=== PATIENT | male | born 1970 | race Caucasian/White ===

== ENCOUNTER → 2019-06-12 | Outpatient (CLI) | payer BC ==
[~2019-06-12] MED LIST: CEPHALEXIN500 M1 PO; DOXYCYCLINE100 M3 PO; IBU-8800 MG PO; KEFLEX500 MG PO; KENALOG 0.1%80 GM T; MOTRIN800 MG PO; TRAMADOL HCL50 MG PO; VICODIN 5/500 505 MG PO
[2019-06-12 08:45] LABS: HEMATOCRIT 46.1 % (42.0-52.0); HEMOGLOBIN 15.6 g/dl (14.0-18.0); MEAN CELL VOLUME 96.8 fl (80.0-94.0); MEAN CORPUSCULAR HGB 32.8 pg (27.0-31.0); MEAN CORPUSCULAR HGB CONC 33.8 g/dl (33.0-37.0); MEAN PLATELET VOLUME 9.4 fl (9.6-12.3); RED BLOOD COUNT 4.76 10*6/uL (4.50-5.90); RED CELL DISTRI WIDTH 11.4 % (0-14.5); WHITE BLOOD COUNT 5.1 10*3/uL (4.8-10.8)
[2019-06-12 09:16] LABS: BUN 13 mg/dl (7-24); CHLORIDE 107 mmol/L (98-107); CHOLESTEROL 192 mg/dL (<200); CREATININE 1.03 mg/dL (0.70-1.30); POTASSIUM 3.9 mmol/L (3.5-5.1); SGOT/AST 26 IU/L (3-35); SGPT/ALT 43 U/L (12-78); SODIUM 140 mmol/L (136-145); TRIGLYCERIDES 83 mg/dl (<150); VLDL CHOLESTEROL 17 mg/dL (6-40)
[2019-06-12 09:25] LABS: ALKALINE PHOSPHATASE 98 U/L (45-117); HDL CHOLESTEROL 61 mg/dl (40-60); LDL CHOLESTEROL 114 mg/dL (9-159)
[2019-06-13 05:04] LABS: RHEUMATOID ARTHRITIS FACTOR <10.0 IU/mL (0.0-13.9)
== END | disposition home or self-care (01) ==
LOC: LAB 08:15
PROVIDERS: Family Medicine
DX: Z12.5 Encounter for screening for malignant neoplasm of prostate (principal); E55.9 Vitamin D deficiency, unspecified; M79.10 Myalgia, unspecified site; M25.50 Pain in unspecified joint; R53.83 Other fatigue; N52.9 Male erectile dysfunction, unspecified

== ENCOUNTER → 2019-09-15 | Outpatient (CLI) | payer BC ==
[~2019-09-15] MED LIST changes: +ASPIRIN PO; +TYLENOL PO; +ZESTRIL10 MG PO; +[UNRECOGNIZED DRUG - OTHER] PO
--- NOTE | 2019-09-15 07:00 | NUR ---
INFORMED CONSENT OBTAINED FOR LEXISCAN NUCLEAR STRESS TEST WITH DR. HERNANDEZ. TESTING SWITCHED FROM EXERCISE CARDIOLITE TO LEXISCAN BECAUSE OF HIP AND KNEE DISCOMFORT. RESTING EKG NSR WITH A RESTING HR OF 83 WITH BP OF 120/80. LUNGS CLEAR WITH SPO2 OF 96% ON ROOM AIR. PT COMPLETED A 1:00 LEXISCAN PROTOCOL RECEIVING LEXISCAN 0.4 MG IV OVER 10 SECONDS. HAD C/O CHEST DISCOMFORT THAT SUBSIDED IN RECOVERY. DEVELOPED T WAVE INVERSIONS IN LEADS V4-V6 THAT RESOLVED IN RECOVERY. HAD A PEAK HR OF 126 WITH BP OF 112/70. LAST RECOVERY HR OF 101 WITH BP OF 110/70. AWAITING SCANNING IN STABLE CONDITION.
== END | disposition home or self-care (01) ==
LOC: CARD 00:10
DX: R94.39 Abnormal result of other cardiovascular function study (principal); R53.81 Other malaise

== ENCOUNTER 2024-12-07 07:41 | Emergency (ER) | payer BC ==
[~2024-12-07] VITALS: Ht 165.1 cm; Wt 83.9 kg
[2024-12-07 08:19] LABS: BASO # 0.0 10*3/uL (0.0-0.1); BASO % 0.6 % (0.0-1.0); EOS # 0.1 10*3/uL (0.0-0.4); EOS % 0.9 % (1.0-4.0); MEAN CELL VOLUME 98.4 fl (80.0-94.0); MEAN CORPUSCULAR HGB 32.9 pg (27.0-31.0); MEAN PLATELET VOLUME 8.6 fl (9.6-12.3); MONO # 0.6 10*3/uL (0.1-1.0); MONO % 8.6 % (3.0-9.0); NEUT # 4.7 10*3/uL (2.3-7.9); NEUT % 72.1 % (47.0-73.0); NUCLEATED RED BLOOD CELL 0.0 % (0.0-0.0); NUCLEATED RED BLOOD CELL 0.0 10*3/uL (0.0-0.0); PLATELET COUNT AUTOMATED 238 10*3/uL (130-400); RED CELL DISTRI WIDTH 12.1 % (0-14.5)
[2024-12-07 08:50] LABS: BUN 9 mg/dl (9-23)
[2024-12-07] MEDS ORDERED: PREDNISONE20 M1 PO (08:59)
== END 2024-12-07 09:12 | disposition home or self-care (01) ==
LOC: ED 07:41
PROVIDERS: Emergency Medicine
DX: G62.9 Polyneuropathy, unspecified (principal); I10 Essential (primary) hypertension; Z87.891 Personal history of nicotine dependence; Z89.029 Acquired absence of unspecified finger(s); Z98.890 Other specified postprocedural states